=== PATIENT | female | born 1970 | race Caucasian/White ===

== ENCOUNTER 2016-08-24 03:32 | Emergency (ER) | payer MEDICAID ==
[~2016-08-24] VITALS: Ht 175.3 cm; Wt 75.0 kg
[2016-08-24] MEDS ORDERED: DIPH,PERTUSS(ACELL),TET VAC/PF 0.5 ML IM-VACC ONE ×2 (04:00→04:41)
[2016-08-24] MEDS ORDERED: LIDOCAINE 1%, 20ML ONE (04:41)
[2016-08-24] MEDS ORDERED: LIDOCAINE 1%, 20ML INFIL ONE (05:00)
[2016-08-24 08:17] VITALS: BP 107/69
== END 2016-08-24 08:19 | disposition home or self-care (01) ==
LOC: ED 07:48
DX: S06.0X9A Concussion with loss of consciousness of unspecified duration, initial encounter (principal); S51.011A Laceration without foreign body of right elbow, initial encounter; S41.112A Laceration without foreign body of left upper arm, initial encounter; G89.11 Acute pain due to trauma; Z23 Encounter for immunization; M19.90 Unspecified osteoarthritis, unspecified site; Y04.0XXA Assault by unarmed brawl or fight, initial encounter; Y93.89 Activity, other specified; Y99.8 Other external cause status; Y92.89 Other specified places as the place of occurrence of the external cause
CPT/HCPCS: 12001; 70450; 72125; 90471; 90715

== ENCOUNTER 2016-09-24 22:28 | Emergency (ER) | payer MEDICAID ==
[~2016-09-24] VITALS: Ht 167.6 cm; Wt 75.0 kg
[2016-09-25 03:22] VITALS: BP 107/70
== END 2016-09-26 05:09 ==
LOC: ED 23:21
DX: F10.10 Alcohol abuse, uncomplicated (principal); F41.1 Generalized anxiety disorder; R06.4 Hyperventilation
CPT/HCPCS: 99283